=== PATIENT | male | born 1995 | race Native Hawaiian/Other Pacific Islander ===

== ENCOUNTER 2021-05-06 07:46 | Emergency (ER) | payer BC ==
[~2021-05-06] VITALS: Ht 175.3 cm; Wt 63.5 kg
[2021-05-06 07:50] VITALS: TEMP 97.8
[2021-05-06 08:30] LABS: PLATELET COUNT 233 K/uL (142-355)
[2021-05-06 08:31] LABS: POTASSIUM 3.6 mmol/L (3.6-5.2)
[2021-05-06 09:28] VITALS: BP 130/71
== END 2021-05-06 09:59 | disposition home or self-care (01) ==
LOC: ED 07:46
PROVIDERS: Emergency Medicine
DX: R42 Dizziness and giddiness (principal); F41.8 Other specified anxiety disorders
CPT/HCPCS: 36415; 80048; 85027; 99283